=== PATIENT | female | born 1970 | race Two or more races ===

== ENCOUNTER 2018-04-28 05:56 | Emergency (ER) | payer MEDICAID ==
[~2018-04-28] VITALS: Ht 157.5 cm; Wt 64.9 kg
--- NOTE | 2018-04-28 05:59 | Emergency Room Report ---
History of Present Illness General Source: Patient Present Illness HPI Patient is a 48-year-old female who presented after a reported near syncopal episode. Patient had a increased sore throat and cough as well as generalized body aches. Patient reports having vomited several times. She reports having some vertigo sensation. She states that she had not been having any chest discomfort. Patient was brought in by EMS. She was noted to have low blood pressure and was started on IV fluids.The patient recently started on amoxicillin for the pharyngitis. Allergies: Coded Allergies: No Known Allergies (Unverified , 04/28/18) Patient History Past Medical History: see triage record Reviewed Nursing Documentation: PMH: Agreed; PSxH: Agreed Review of Systems All Other Systems: negative except mentioned in HPI Physical Exam Sp02 EP Interpretation: reviewed, normal General Appearance: normal inspection, well appearing, no apparent distress, alert, GCS 15, moderate distress Head: atraumatic ENT: normal ENT inspection, hearing grossly normal, normal voice Neck: normal inspection, full range of motion, supple, no bony tend Respiratory: normal inspection, lungs clear, normal breath sounds, no respiratory distress, no retraction, no wheezing Cardiovascular #1: regular rate, rhythm, no edema Gastrointestinal: normal inspection, normal bowel sounds, non tender, soft, no guarding, no hernia Genitourinary: no CVA tenderness Musculoskeletal: normal inspection, back normal, normal range of motion Neurologic: normal inspection, alert, oriented x3, responsive, classified advertising manager III-XII nml as tested, speech normal Psychiatric: normal inspection, judgement/insight normal, mood/affect normal Skin: normal inspection, normal color, no rash Medical Decision Making Diagnostic Impression: Primary Impression: Syncope ER Course lDifferential diagnosis included but not limited to syncope versus seizure. Potential causes for syncope included arrhythmia, dehydration, acute coronary syndrome, severe anemia, pulmonary embolus. Because of complexity of patient's case laboratory testing and imaging studies were ordered. EKG interpreted by me showed normal sinus rhythm with a rate of [address] or T wave changes. Patient was started on IV fluids. The CT of head was ordered and showed evidence of acute fracture or intracranial hemorrhage.The patient was endorsed to Dr. Xiong pending insurance authorization for admission versus transfer Labs Test 04/28/18 06:00 White Blood Count 13.0 K/UL (4.8-10.8) Red Blood Count 4.94 M/UL (4.20-5.40) Hemoglobin 13.9 G/DL (12.0-16.0) Hematocrit 42.4 % (37.0-47.0) Mean Corpuscular Volume 86 FL (80-99) Mean Corpuscular Hemoglobin 28.2 PG (27.0-31.0) Mean Corpuscular Hemoglobin Concent 32.8 G/DL (32.0-36.0) Red Cell Distribution Width 11.7 % (11.6-14.8) Platelet Count 309 K/UL (150-450) Mean Platelet Volume 7.1 FL (6.5-10.1) Neutrophils (%) (Auto) 65.5 % (45.0-75.0) Lymphocytes (%) (Auto) 27.9 % (20.0-45.0) Monocytes (%) (Auto) 4.9 % (1.0-10.0) Eosinophils (%) (Auto) 0.9 % (0.0-3.0) Basophils (%) (Auto) 0.8 % (0.0-2.0) Sodium Level 139 MMOL/L (136-145) Potassium Level 3.4 MMOL/L (3.5-5.1) Chloride Level 106 MMOL/L (98-107) Carbon Dioxide Level 23 MMOL/L (21-32) Anion Gap 10 mmol/L (5-15) Blood Urea Nitrogen 12 mg/dL (7-18) Creatinine 0.7 MG/DL (0.55-1.30) Estimat Glomerular Filtration Rate > 60 mL/min (>60) Glucose Level 188 MG/DL (74-106) Calcium Level 8.9 MG/DL (8.5-10.1) Total Bilirubin 0.9 MG/DL (0.2-1.0) Aspartate Amino Transf (AST/SGOT) 21 U/L (15-37) Alanine Aminotransferase (ALT/SGPT) 32 U/L (12-78) Alkaline Phosphatase 77 U/L (46-116) Total Creatine Kinase 122 U/L (26-308) Creatine Kinase MB 0.8 NG/ML (0.0-3.6) Creatine Kinase MB Relative Index 0.6 Troponin I 0.000 ng/mL (0.000-0.056) Pro-B-Type Natriuretic Peptide 18 pg/mL (0-125) Total Protein 7.4 G/DL (6.4-8.2) Albumin 3.8 G/DL (3.4-5.0) Globulin 3.6 g/dL Albumin/Globulin Ratio 1.1 (1.0-2.7) EKG Diagnostic Results Rate: normal Rhythm: NSR ST Segments: no acute changes Status: unchanged Condition: Stable Neri Montes De Oca MD Apr 28, 2018 05:59
[2018-04-28] MEDS ORDERED: Meclizine 25mg tab ORAL ONE (06:00)
[2018-04-28 06:21] LABS: BASOPHILS % (AUTO) 0.8 % (0.0-2.0); EOSINOPHILS % (AUTO) 0.9 % (0.0-3.0); HEMATOCRIT 42.4 % (37.0-47.0); HEMOGLOBIN 13.9 G/DL (12.0-16.0); LYMPHOCYTES % (AUTO) 27.9 % (20.0-45.0); MEAN CORPUSCULAR VOLUME 86 FL (80-99); MONOCYTES % (AUTO) 4.9 % (1.0-10.0); NEUTROPHILS % (AUTO) 65.5 % (45.0-75.0); PLATELET COUNT 309 K/UL (150-450); RED BLOOD COUNT 4.94 M/UL (4.20-5.40); RED CELL DISTRIBUTION WIDTH 11.7 % (11.6-14.8)
[2018-04-28 06:40] LABS: ANION GAP 10 mmol/L (5-15); BLOOD UREA NITROGEN 12 mg/dL (7-18); CALCIUM 8.9 MG/DL (8.5-10.1); CARBON DIOXIDE 23 MMOL/L (21-32); CHLORIDE 106 MMOL/L (98-107); CREATININE 0.7 MG/DL (0.55-1.30); POTASSIUM 3.4 MMOL/L (3.5-5.1); SODIUM 139 MMOL/L (136-145)
[2018-04-28 06:53] VITALS: BP 121/59
[2018-04-28 06:53] LABS: ALANINE AMINOTRANSFERASE 32 U/L (12-78); ALBUMIN 3.8 G/DL (3.4-5.0); ALBUMIN/GLOBULIN RATIO 1.1 (1.0-2.7); ALKALINE PHOSPHATASE 77 U/L (46-116); ASPARTATE AMINO TRANSFERASE 21 U/L (15-37); BILIRUBIN,TOTAL 0.9 MG/DL (0.2-1.0); CKMB 0.8 NG/ML (0.0-3.6); CREATINE KINASE 122 U/L (26-308)
[2018-04-28 09:16] LABS: APPEARANCE,URINE CLEAR; BILIRUBIN, URINE NEGATIVE (NEGATIVE); COLOR,URINE PALE YELLOW; GLUCOSE, URINE (UA) NEGATIVE (NEGATIVE); KETONES,URINE 2+ (NEGATIVE); LEUKOCYTE ESTERASE ,URINE NEGATIVE (NEGATIVE); NITRITE,URINE NEGATIVE (NEGATIVE); PH,URINE 6.5 (4.5-8.0); PROTEIN,URINE NEGATIVE (NEGATIVE); UROBILINOGEN,URINE NORMAL MG/DL (0.0-1.0)
--- NOTE | 2018-04-28 10:25 | Diagnostic Imaging Report ---
Indication: Reason For Exam: PAIN Technique: Continuous helical CT scanning of the head was performed without intravenous contrast material. Axial and coronal 5 mm sections were generated. Radiation dose was minimized using automated exposure control Dose: Total Dose Length Product - DLP 1316.[address] Dose Index - CTDIvol(s) 70.38 mGy. Comparison: none Findings: Exam is limited due to slight motion as well as posterior fossa streak artifacts. There is a small central focus of high attenuation in the joel which measures 3 mm in diameter. No other evidence of acute intracranial hemorrhage or edema, mass effect, or midline shift. Normal melendez-white differentiation. Normal-sized ventricles and extra axial CSF spaces. Visualized orbits are unremarkable. There is ethmoid sinus disease. There is minimal left maxillary sinus disease. The mastoids are clear. The calvarium is intact Impression: 3 mm high attenuation focus centrally within the joel. Suspect artifactual or on the basis of calcification, but small lead not excludable. Consider MRI for better characterization Minimal sinus disease This agrees with the preliminary interpretation provided overnight by [facility]. With some variation. Findings also discussed by phone with Dr. Escobar in the emergency room at the time of interpretation The CT scanner at [facility] is accredited by the [employer] and the scans are performed using protocols designed to limit radiation exposure to as low as reasonably achievable to attain images of sufficient resolution adequate for diagnostic evaluation.
[2018-04-28 10:34] VITALS: BP 128/65
[2018-04-28 11:26] VITALS: BP 134/81
--- NOTE | 2018-04-28 11:43 | Diagnostic Imaging Report ---
Indication: Reason For Exam: SYNCOPE Technique: sagittal T1 fast spin echo, axial T1 FLAIR, axial T2 FLAIR, axial T2 FS PROPELLER, axial T2* GRE, axial diffusion weighted images. ADC and exponential ADC maps generated Comparison: Reference made to CT scan earlier the same day Findings: No abnormal areas of restricted diffusion to suggest acute infarction. No acute hemorrhage or edema. No mass effect nor midline shift. Normal size ventricles and extra axial CSF spaces. Visualized orbits and sinuses are unremarkable. No abnormality seen to correlate to suspect the finding described on recent brain CT Impression: Negative. Negative for acute intracranial bleed or mass effect or infarct Abnormality described on recent brain CT is presumably artifactual
--- NOTE | 2018-04-28 13:01 | Cardiology Report ---
APPROVED REPORT EKG Measurement Heart [id number] Normal sinus rhythm Normal ECG
[2018-04-28 14:05] VITALS: BP 124/66
--- NOTE | 2018-04-28 15:35 | Diagnostic Imaging Report ---
Indication: Shortness of breath Technique: One view of the chest Comparison: none Findings: Lungs and pleural spaces are clear. Heart size is normal Impression: No acute process
--- NOTE | 2018-04-28 15:38 | Diagnostic Imaging Report ---
Indication: Foot Technique: 3 views right foot Comparison: none Findings: There are plantar and calcaneal spurs. No acute fractures. No dislocations. The joint spaces are preserved. Impression: No acute bony trauma
== END 2018-04-28 14:05 | disposition short-term general hospital (02) ==
LOC: EDBD 05:56 → EMR 06:14 → ENRESERV 11:11 → EMR 14:05
DX: R55 Syncope and collapse (principal); M77.31 Calcaneal spur, right foot; R06.02 Shortness of breath
CPT/HCPCS: 36415; 70450; 70551; 71045; 73630; 80053; 81003; 82550; 82553; 83880; 84484; 85025; 93005; 96361; 96374; 99284; J2405; 96365